=== PATIENT | female | born 1975 | race African-American/Black ===

== ENCOUNTER 2018-03-02 17:36 | Emergency (ER) | payer BC, SELFPAY ==
[2018-03-02] MEDS ORDERED: KETOROLAC 30 MG/ML INJ ONE (18:03)
--- NOTE | 2018-03-02 18:39 | RAD REPORT ---
EXAM DESCRIPTION: RAD - Knee Left 3 View - 03/02/2018 6:30 pm CLINICAL HISTORY: PAIN COMPARISON: No comparisons FINDINGS: Hardware is present at the level of the tibial tubercle. No fracture, dislocation or joint effusion. IMPRESSION: Negative study.
--- NOTE | 2018-03-02 18:49 | ER ---
Nurse's Notes [facility] Name: Yakelin Lange Age: 42 yrs Sex: Female : 1975 Arrival Date: 03/02/2018 Time: 17:39 Bed 9 Private MD: Lizandro Cao V Diagnosis: Pain in left knee Presentation: 03/02 17:42 Presenting complaint: Patient states: left knee pain x 1 day. Transition of care: sv patient was not received from another setting of care. Onset of symptoms was March 01, 2018. Care prior to arrival: None. 17:42 Method Of Arrival: Ambulatory sv 17:42 Acuity: FIORDALIZA 4 sv 17:53 Risk Assessment: Do you want to hurt yourself or someone else? Patient reports no rv desire to harm self or others. Initial Sepsis Screen: Does the patient meet any 2 criteria? No. Patient's initial sepsis screen is negative. Does the patient have a suspected source of infection? No. Patient's initial sepsis screen is negative. Triage Assessment: 17:42 General: Appears in no apparent distress. uncomfortable, Behavior is calm, cooperative, sv appropriate for age. Pain: Complains of pain in left knee Pain currently is 8 out of 10 on a pain scale. EENT: No signs and/or symptoms were reported regarding the EENT system. Neuro: Level of Consciousness is awake, alert, obeys commands, Oriented to person, place, time, situation, Moves all extremities. Respiratory: Respiratory effort is even, unlabored, Respiratory pattern is regular, symmetrical. Historical: - Allergies: 17:42 No Known Allergies; sv - Home Meds: 17:42 None [Active]; sv - PMHx: 17:42 None; sv - PSHx: 17:42 left knee; ; sv - Immunization history:: Flu vaccine is not up to date. - Social history:: Smoking status: Patient/guardian denies using tobacco, Patient uses Patient/guardian denies using alcohol, street drugs, The patient lives with family. - Ebola Screening: : No symptoms or risks identified at this time. - Family history:: not pertinent, pertinent for. - Hospitalizations: : No recent hospitalization is reported. Screenin:53 Abuse screen: Denies threats or abuse. Denies injuries from another. Nutritional rv screening: No deficits noted. Tuberculosis screening: No symptoms or risk factors identified. Fall Risk None identified. Assessment: 17:51 General: Appears in no apparent distress. comfortable, Behavior is calm, cooperative. rv Pain: Complains of pain in left knee. Neuro: Level of Consciousness is awake, alert, obeys commands, Oriented to person, place, time, situation. Cardiovascular: Capillary refill < 3 seconds. Respiratory: Airway is patent. GI: No signs and/or symptoms were reported involving the gastrointestinal system. : No signs and/or symptoms were reported regarding the genitourinary system. EENT: No signs and/or symptoms were reported regarding the EENT system. Derm: Skin is intact. Vital Signs: 17:43 BP 142 / 78; Pulse 77; Resp 18; Temp 96.5; Pulse Ox 100% on R/A; Weight 90.72 kg; sv Height 5 ft. 7 in. (170.18 cm); Pain 8/10; 19:06 BP 138 / 84; Pulse 75; Pulse Ox 100% on R/A; rv 17:43 Body Mass Index 31.32 (90.72 kg, 170.18 cm) sv ED Course: 17:39 Patient arrived in ED. as 17:39 Lizandro Cao MD is Private Physician. as 17:42 Triage completed. sv 17:43 Arm band placed on Patient placed in an exam room, on a stretcher. sv 17:46 Christopher Dyer MD is Attending Physician. ma2 17:53 Patient has correct armband on for positive identification. Call light in reach. NIBP rv on. 18:30 Knee Left 3 View XRAY In Process Unspecified. EDMS 19:07 No provider procedures requiring assistance completed. Patient did not have IV access rv during this emergency room visit. Administered Medications: 18:00 Drug: TORadol 60 mg Route: IM; Site: right deltoid; rv 19:06 Follow up: Response: No adverse reaction; Pain is decreased rv Outcome: 18:49 Discharge ordered by . ma2 19:07 Discharged to home ambulatory. rv 19:07 Condition: improved 19:07 Discharge instructions given to patient, Instructed on discharge instructions, follow up and referral plans. medication usage, Demonstrated understanding of instructions, follow-up care, medications, Prescriptions given X 1. 19:07 Patient left the ED. rv Signatures: Dispatcher [employer] EDMS Bang Rajanie, RN RN Milli Granados Mohammad, MD MD ma2 Jensen Smith RN RN rv
--- NOTE | 2018-03-02 18:50 | EDPHYS ---
Physician Documentation [facility] Name: Yakelin Lange Age: 42 yrs Sex: Female : 1975 Arrival Date: 03/02/2018 Time: 17:39 Bed 9 Private MD: Lizandro Cao V ED Physician Christopher Dyer HPI: 03/02 17:53 This 42 yrs old Black Female presents to ER via Ambulatory with complaints of Knee Pain.ma2 17:53 The patient presents with pain. The complaints affect the left knee. Onset: The ma2 symptoms/episode began/occurred gradually, 2 day(s) ago. Associated signs and symptoms: Pertinent negatives fever, numbness, swelling, vomiting. Severity of symptoms: At their worst the symptoms were moderate, in the emergency department the symptoms are unchanged. The patient has experienced a previous episode. Historical: - Allergies: 17:42 No Known Allergies; sv - Home Meds: 17:42 None [Active]; sv - PMHx: 17:42 None; sv - PSHx: 17:42 left knee; ; sv - Immunization history:: Flu vaccine is not up to date. - Social history:: Smoking status: Patient/guardian denies using tobacco, Patient uses Patient/guardian denies using alcohol, street drugs, The patient lives with family. - Ebola Screening: : No symptoms or risks identified at this time. - Family history:: not pertinent, pertinent for. - Hospitalizations: : No recent hospitalization is reported. ROS: 17:53 Constitutional: Negative for fever, chills, and weight loss, Respiratory: Negative for ma2 shortness of breath, cough, wheezing, and pleuritic chest pain, : Negative for injury, bleeding, discharge, and swelling. 17:53 MS/extremity: Positive for pain, Negative for acute changes, abrasion, contusion, deformity, rash, tenderness, tingling. 17:53 All other systems are negative. Exam: 17:53 Constitutional: This is a well developed, well nourished patient who is awake, alert, ma2 and in no acute distress. Chest/axilla: Normal chest wall appearance and motion. Nontender with no deformity. No lesions are appreciated. Cardiovascular: Regular rate and rhythm with a normal S1 and S2. No gallops, murmurs, or rubs. Normal PMI, no JVD. No pulse deficits. Respiratory: Lungs have equal breath sounds bilaterally, clear to auscultation and percussion. No rales, rhonchi or wheezes noted. No increased work of breathing, no retractions or nasal flaring. Abdomen/GI: Soft, non-tender, with normal bowel sounds. No distension or tympany. No guarding or rebound. No evidence of tenderness throughout. MS/ Extremity: Pulses equal, no cyanosis. Neurovascular intact. Full, normal range of motion. Neuro: Awake and alert, GCS 15, oriented to person, place, time, and situation. Cranial nerves II-XII grossly intact. Motor strength 5/5 in all extremities. Sensory grossly intact. Cerebellar exam normal. Normal gait. Vital Signs: 17:43 BP 142 / 78; Pulse 77; Resp 18; Temp 96.5; Pulse Ox 100% on R/A; Weight 90.72 kg; sv Height 5 ft. 7 in. (170.18 cm); Pain 8/10; 19:06 BP 138 / 84; Pulse 75; Pulse Ox 100% on R/A; rv 17:43 Body Mass Index 31.32 (90.72 kg, 170.18 cm) sv MDM: 17:46 Patient medically screened. ma2 17:53 Differential diagnosis: closed fracture, contusion, abrasion, tendonitis. ma2 18:48 Data reviewed: vital signs, nurses notes, radiologic studies. Counseling: I had a ma2 detailed discussion with the patient and/or guardian regarding: the historical points, exam findings, and any diagnostic results supporting the discharge/admit diagnosis, the presence of at least one elevated blood pressure reading (>120/80) during this emergency department visit, the need for outpatient follow up. Response to treatment: the patient's symptoms have markedly improved after treatment. 03/02 17:52 Order name: Knee Left 3 View XRAY; Complete Time: 18:48 ma2 Administered Medications: 18:00 Drug: TORadol 60 mg Route: IM; Site: right deltoid; rv 19:06 Follow up: Response: No adverse reaction; Pain is decreased rv Disposition: 03/02/18 18:49 Discharged to Home. Impression: Pain in left knee. - Condition is Stable. - Discharge Instructions: Knee Pain. - Prescriptions for Tylenol- Codeine #3 300-30 mg Oral Tablet - take 2 tablet by ORAL route every 6 hours As needed; 30 tablet. - Medication Reconciliation Form, Thank You Letter, Antibiotic Education, Prescription Opioid Use form. - Follow up: Private Physician; When: Tomorrow; Reason: Continuance of care. Signatures: Dispatcher [employer] April Faulkner RN RN sv Alzahri, Mohammad, MD MD ma2 Jensen Smith RN RN rv Corrections: (The following items were deleted from the chart) 19:07 18:49 03/02/2018 18:49 Discharged to Home. Impression: Pain in left knee. Condition is rv Stable. Forms are Medication Reconciliation Form, Thank You Letter, Antibiotic Education, Prescription Opioid Use. Follow up: Private Physician; When: Tomorrow; Reason: Continuance of care. ma2
[2018-03-03 14:56] VITALS: BP 138/84; TEMP 96.5; O2SAT 100
== END 2018-03-02 19:07 | disposition home or self-care (01) ==
LOC: ER 17:36
DX: M25.562 Pain in left knee (principal)
CPT/HCPCS: 96372; 99283

== ENCOUNTER 2021-02-04 09:59 | Emergency (ER) | payer BC ==
[2021-02-04] MEDS ORDERED: HYDROCODONE/APAP 5/325 MG TAB ONE (10:37)
--- NOTE | 2021-02-04 10:39 | RAD REPORT ---
EXAM DESCRIPTION: RAD - Knee Right 3 View - 02/04/2021 10:31 am CLINICAL HISTORY: Right knee pain status post injury FINDINGS: No fracture or dislocation is seen. A small to moderate joint effusion
--- NOTE | 2021-02-04 10:48 | ER ---
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 Pt c/o right knee pain. 10:00 Onset of symptoms was January 2021. aa5 10:00 Acuity: FIORDALIZA 4 aa5 10:00 Coronavirus screen: At this time, the client does not indicate any symptoms associated aa5 with coronavirus-19. Ebola Screen: Patient negative for fever greater than or equal to 101.5 degrees Fahrenheit, and additional compatible Ebola Virus Disease symptoms. 10:00 Method Of Arrival: Wheelchair aa5 10:00 Initial Sepsis Screen: Does the patient meet any 2 criteria? HR > 90 bpm. Does the aa5 patient have a suspected source of infection? No. Patient's initial sepsis screen is negative. Risk Assessment: Do you want to hurt yourself or someone else? Patient reports no desire to harm self or others. Historical: - Allergies: 10:10 No Known Allergies; aa5 - Home Meds: 10:10 None [Active]; aa5 - PMHx: 10:10 None; aa5 - PSHx: 10:10 Left knee; section; aa5 - Immunization history:: Client reports receiving the 2nd dose of the Covid vaccine. - Social history:: Smoking status: Patient denies any tobacco usage or history of. Screenin:22 Abuse screen: Denies threats or abuse. Denies injuries from another. Nutritional aj2 screening: No deficits noted. Tuberculosis screening: No symptoms or risk factors identified. Fall Risk None identified. Assessment: 10:22 Pain: Complains of pain in right knee Pain does not radiate. Pain currently is 10 out aj2 of 10 on a pain scale. Quality of pain is described as throbbing, Pain began 1 day ago. Is continuous, Alleviated by nothing. Aggravated by increased activity, repositioning, weight bearing. Vital Signs: 10:00 BP 130 / 79; Pulse 100; Resp 18 S; Temp 98.0(TE); Pulse Ox 98% on R/A; Weight 93.44 kg aa5 (R); Height 5 ft. 8 in. (172.72 cm) (R); 10:22 BP 137 / 81; Pulse 86; Resp 18; Temp 98.0; Pulse Ox 100% ; aj2 10:00 Body Mass Index 31.32 (93.44 kg, 172.72 cm) aa5 ED Course: 10:00 Patient arrived in ED. am2 10:00 Ulysses Howell MD is Private Physician. am2 10:00 Arm band placed on Patient placed in an exam room, on a stretcher. aa5 10:01 Duncan Navarro is Primary Nurse. aj2 10:03 Lavon Chan NP is PHCP. pm1 10:03 Severiano Flores MD is Attending Physician. pm1 10:09 Triage completed. aa5 10:22 No apparent distress. Resting quietly. aj2 10:22 Patient has correct armband on for positive identification. aj2 10:22 No provider procedures requiring assistance completed. Patient did not have IV access aj2 during this emergency room visit. 10:31 Knee Right 3 View XRAY In Process Unspecified. EDMS 10:47 Saurabh Reyes MD is Referral Physician. pm1 Administered Medications: 10:14 Drug: HYDROcodone-acetaminophen 5 mg-325 mg 1 tabs Route: PO; aj2 Outcome: 10:47 Discharge ordered by MD. pm1 11:08 Discharged to home ambulatory, via wheelchair, with crutches. aj2 11:08 Discharged to 11:08 Condition: stable 11:08 Discharge instructions given to patient, Instructed on discharge instructions, follow up and referral plans. medication usage, Demonstrated understanding of instructions, follow-up care, medications, crutch walking, Prescriptions given X 2. 11:08 Discharge instructions given to Instructed on safe sex practices, safety practices, crutch walking. 11:10 Patient left the ED. aj2 Signatures: Dispatcher [employer] EDMS Jacki Santillan RN RN aa5 Lavon Chan NP ALLIGATOR HUNTER pm1 Lelo Orr am2 Duncan Navarro aj2
--- NOTE | 2021-02-04 10:48 | EDPHYS ---
Physician Documentation [facility] Name: Yakelin Lange Age: 45 yrs Sex: Female : 1975 Arrival Date: 02/04/2021 Time: 10:00 Bed 30 Private MD: Ulysses Howell ED Physician Severiano Flores HPI: 02/04 10:14 This 45 yrs old Black Female presents to ER via Wheelchair with complaints of Right pm1 Knee Pain. 10:14 The patient presents with pain, that is acute. The complaints affect the right knee. pm1 Context: resulted from Dropped food cans on right knee, the patient can partially bear weight, the patient is able to ambulate, with mild difficulty, Problem is a result from a previous injury: No. Onset: The symptoms/episode began/occurred yesterday. Modifying factors: the symptoms are aggravated by bending knee, Extending knee. Associated signs and symptoms: Pertinent negatives calf tenderness, numbness, tingling. Treatment prior to arrival includes: no previous treatment. Severity of symptoms: in the emergency department the symptoms are unchanged. The patient has not recently seen a physician. Historical: - Allergies: 10:10 No Known Allergies; aa5 - Home Meds: 10:10 None [Active]; aa5 - PMHx: 10:10 None; aa5 - PSHx: 10:10 Left knee; section; aa5 - Immunization history:: Client reports receiving the 2nd dose of the Covid vaccine. - Social history:: Smoking status: Patient denies any tobacco usage or history of. ROS: 10:20 Constitutional: Negative for fever, chills, and weight loss, Cardiovascular: Negative pm1 for chest pain, palpitations, and edema, Respiratory: Negative for shortness of breath, cough, wheezing, and pleuritic chest pain, Skin: Negative for injury, rash, and discoloration. 10:20 Neuro: Negative for headache, weakness, numbness, tingling, and seizure. 10:20 MS/extremity: Positive for pain, of the right knee, Negative for decreased range of motion, deformity. 10:20 All other systems are negative. Exam: 10:20 Constitutional: This is a well developed, well nourished patient who is awake, alert, pm1 and in no acute distress. Head/Face: Normocephalic, atraumatic. 10:20 Skin: Warm, dry with normal turgor. Normal color with no rashes, no lesions, and no evidence of cellulitis. MS/ Extremity: Pulses equal, no cyanosis. Neurovascular intact. Full, normal range of motion. 10:20 ENT: Exam is negative for acute changes, Mouth: Lips: normal, moist, Oral mucosa: normal, pink and intact, moist. 10:20 Cardiovascular: Exam negative for acute changes, Rate: normal, Rhythm: regular, Pulses: no pulse deficits are appreciated. 10:20 Respiratory: Exam negative for acute changes, respiratory distress, shortness of breath. 10:20 Neuro: Exam negative for acute changes, Orientation: is normal, Mentation: is normal, Motor: is normal, moves all fours. Vital Signs: 10:00 BP 130 / 79; Pulse 100; Resp 18 S; Temp 98.0(TE); Pulse Ox 98% on R/A; Weight 93.44 kg aa5 (R); Height 5 ft. 8 in. (172.72 cm) (R); 10:22 BP 137 / 81; Pulse 86; Resp 18; Temp 98.0; Pulse Ox 100% ; aj2 10:00 Body Mass Index 31.32 (93.44 kg, 172.72 cm) aa5 MDM: 10:03 Patient medically screened. pm1 10:46 Data reviewed: vital signs. Data interpreted: Pulse oximetry: on room air is 100 %. pm1 Interpretation: normal. Counseling: I had a detailed discussion with the patient and/or guardian regarding: the historical points, exam findings, and any diagnostic results supporting the discharge/admit diagnosis, radiology results, the need for outpatient follow up, a orthopedic surgeon, to return to the emergency department if symptoms worsen or persist or if there are any questions or concerns that arise at home. 02/04 10:07 Order name: Knee Right 3 View XRAY; Complete Time: 10:46 pm1 02/04 10:07 Order name: Knee Immobilizer; Complete Time: 10:32 pm1 02/04 10:07 Order name: Crutches; Complete Time: 10:32 pm1 Administered Medications: 10:14 Drug: HYDROcodone-acetaminophen 5 mg-325 mg 1 tabs Route: PO; aj2 Disposition: 02/05 09:59 Co-signature as Attending Physician, Severiano Mark MD I agree with the assessment and jane plan of care. Disposition Summary: 02/04/21 10:47 Discharge Ordered Location: Home pm1 Problem: new pm1 Symptoms: have improved pm1 Condition: Stable pm1 Diagnosis - Contusion of right knee pm1 - Effusion, right knee pm1 Followup: pm1 - With: Emergency Department - When: As needed - Reason: Worsening of condition Followup: pm1 - With: Saurabh Reyes MD - When: 2 - 3 days - Reason: Recheck today's complaints, Continuance of care, Re-evaluation by your physician Discharge Instructions: - Discharge Summary Sheet pm1 - Contusion pm1 - Knee Effusion pm1 - Crutch Use, Adult pm1 - How to Use a Knee Immobilizer pm1 Forms: - Medication Reconciliation Form pm1 - Thank You Letter pm1 - Antibiotic Education pm1 - Prescription Opioid Use pm1 Prescriptions: - acetaminophen-codeine 300-15 mg Oral tablet - take 2 tablet by ORAL route every 6 hours As needed as needed; 20 tablet; pm1 Refills: 0, Product Selection Permitted - Diclofenac Sodium 75 mg Oral tablet,delayed release (DR/EC) - take 1 tablet by ORAL route every 12 hours As needed; 30 tablet; Refills: 0, pm1 Product Selection Permitted Signatures: Dispatcher [employer] EDSeveriano Woodall MD MD cha Calderon, Audri, RN RN aa5 Lavon Chan, [employer] pm1 Duncan Navarro aj2
[2021-02-04 11:16] VITALS: TEMP 98
[2021-02-04 11:17] VITALS: BP 137/81; O2SAT 100
== END 2021-02-04 11:10 | disposition home or self-care (01) ==
LOC: ER 09:59
DX: M25.461 Effusion, right knee (principal); S80.01XA Contusion of right knee, initial encounter; W22.8XXA Striking against or struck by other objects, initial encounter
CPT/HCPCS: 99284